=== PATIENT | female | born 1960 | race Two or more races ===

== ENCOUNTER 2025-03-31 17:34 | Emergency (ER) | payer MEDICARE, MEDICAID, SELFPAY ==
[2025-03-31 17:35] VITALS: BMI 25.5
[2025-03-31 17:52] VITALS: BP 130/73; PULSE 72; RESP 18; TEMP 37; O2SAT 97
--- NOTE | 2025-03-31 18:06 | XR_ITS ---
Examination: Humerus 2 views right Technique: Humerus, AP lateral 2 views Date and time of exam: March 31, 2025, 1807 hours INDICATION: Patient fell today with injury of the arm, arm pain. FINDINGS: No acute fracture No shoulder dislocation IMPRESSION: No acute fracture Mild shoulder calcific tendinitis
--- NOTE | 2025-03-31 18:06 | XR_ITS ---
Examination: Forearm, right, 2 views. Technique: Forearm, AP, lateral 2 views Date and time of exam: March 31, 2025, 1807 hours INDICATIONS: Patient fell today with injury to the forearm, forearm pain. FINDINGS: Nonstandard views The distal ulna is dorsally positioned on the lateral view No definite acute fracture IMPRESSION: Limited study, nonstandard views The distal ulna is dorsally positioned on the lateral view, recommend follow-up true lateral view of the wrist
--- NOTE | 2025-03-31 18:06 | XR_ITS ---
Examination: Hand, right 3 views Technique: Hand AP, oblique, lateral 3 views Date and time of exam: March 31, 2025, 1820 hours INDICATIONS: Patient fell today with injury to the hand, hand pain. FINDINGS: No acute fracture On the lateral view the distal ulna is dorsally positioned No foreign body IMPRESSION: Recommend follow-up true lateral view of the wrist to exclude dorsal dislocation of the distal ulna
--- NOTE | 2025-03-31 18:06 | XR_ITS ---
Examination: Shoulder, right, 3 views Technique: Shoulder AP internal rotation, AP external rotation, Y view shoulder, 3 views Exam date and time : March 31, 2025, e.g. 07 hours INDICATIONS: Patient fell today with injury of the shoulder, shoulder pain. FINDINGS: No shoulder fracture or dislocation Mild calcific tendinitis IMPRESSION: No shoulder fracture or dislocation
--- NOTE | 2025-03-31 18:08 | PD.EDRME ---
Rapid Medical Screening Exam RME Arrival date/time: 03/31/25 17:34 64-year-old female presents to the Emergency Department of complaint of right arm pain after ground-level fall today patient reports that she tripped. Patient ports no head or neck injury Chief Complaint: Extremity Injury, Upper Time Seen by Provider: 03/31/25 18:08 Vital signs: Vital Signs Temperature 98.6 F 03/31/25 17:52 Pulse Rate 72 03/31/25 17:52 Respiratory Rate 18 03/31/25 17:52 Blood Pressure 130/73 03/31/25 17:52 Pulse Oximetry (%) 97 03/31/25 17:52 Oxygen Delivery Method Room Air 03/31/25 17:52 Vital signs reviewed by provider: Yes Exam: On exam well-appearing does not appear ill or toxic but patient does have pain in the right arm suspect fracture Clinical Impression: Imaging obtained as well as pain medication given
[2025-03-31 19:29] VITALS: TEMP 37.1
[2025-03-31] MEDS: KETOROLAC INJ 30 MG/ML VIAL IM (19:29)
[2025-03-31] MEDS: HYDROcodone/APAP 5/325 TABLET 1 TAB PO (19:29)
[2025-03-31 20:52] VITALS: TEMP 37.7
[2025-03-31 21:13] VITALS: BP 138/74; PULSE 58; RESP 18; TEMP 36.6; O2SAT 98
--- NOTE | 2025-03-31 21:22 | PD.EDADULT ---
ED General RME/HPI General Chief complaint: Extremity Injury, Upper Stated complaint: shoulder pain Time Seen by Provider: 03/31/25 18:08 Arrival date/time: 03/31/25 17:34 Right shoulder, elbow and wrist pain HPI status post fall 330 this afternoon denies LOC or LOC tripped and fell. Does not on any blood thinners denies numbness or tingling in the hand. Is complaining of pain and mild swelling to the dorsum of the right hand. Decreased range of motion secondary to pain. Pain is localized as a 3 4 on a 10 scale 7-8 with flexion extension of the elbow wrist or shoulder. RME / HPI RME / HPI narrative: 03/31/25 17:34 64-year-old female presents to the Emergency Department of complaint of right arm pain after ground-level fall today patient reports that she tripped. Patient ports no head or neck injury Exam: On exam well-appearing does not appear ill or toxic but patient does have pain in the right arm suspect fracture Impression: Imaging obtained as well as pain medication given Related Data Home Medications ?Medication ?Instructions ?Recorded ?Confirmed atorvastatin 10 mg tablet 10 mg PO QDAY 07/05/21 07/05/21 cyclobenzaprine 10 mg tablet 10 mg PO HS 07/05/21 07/05/21 naproxen 500 mg tablet 500 mg PO BID PRN Pain 07/05/21 07/05/21 Allergies Allergy/AdvReac Type Severity Reaction Status Date / Time No Known Allergies Allergy Verified 07/05/21 07:52 Review of Systems Review of Systems Narrative Review of Systems: GEN: No fever, no chills, no weight loss EYES: No discharge, no visual changes, no pain HEENT: No ear pain, no congestion, no sore throat PULM: No shortness of breath, no cough, no congestion CV: No chest pain, no dyspnea on exertion, no palpitations GI: No nausea, no vomiting, no diarrhea, no pain, no constipation : No frequency, no urgency, no dysuria MUSC/SKEL: + joint pain, no back pain SKIN: No rash PSYCH: No hallucinations, no depression HEME/LYMPH: No easy bleeding or bruising tendencies NEURO: No weakness, no headache Past Medical History Past Medical History NEUROLOGIC: Negative Neurological Disorders or Seizures CARDIAC: Positive Cardiac Disorders and Hypercholesterolemia (TAKES MED); Negative Congestive Heart Failure, Edema, Cellulitis or Varicose Veins RESPIRATORY: Negative Chronic Obstructive Pulmonary Disease (COPD), Tuberculosis, Pulmonary Embolism or Sleep Apnea GASTROINTESTINAL: Negative Gastrointestinal Disorders or Hepatitis GENITOURINARY: Negative Genitourinary Disorders or Renal Disease REPRODUCTIVE: Positive Previous Pregnancies (X3) MUSCULOSKELETAL: Positive Musculoskeletal Disorders and Arthritis ENDOCRINE: Negative Endocrine Disorders, Diabetes Mellitus Type 1 or Diabetes Mellitus Type 2 HEMATOLOGIC: Negative Blood Disorders OTHER HISTORY: Positive Chicken Pox and Measles; Negative Hospitalization, Autoimmune Disease, Shingles, Falls, Blood Transfusions, Blood Transfusion Reaction, Anesthesia Reactions, Chemotherapy, Radiation Therapy, MRSA, Mumps or Cancer Family History FAMILY HISTORY: Positive Family Surgery (BROTHER); Negative Family Psychiatric Problems, Family Respiratory Disorders, Family Cardiac Disorders, Family Gastrointestinal Problems, Family Cancer or Family Anesthesia Reaction Surgical History SURGICAL: Negative Pacemaker Social History SMOKING STATUS: Never smoker ED Exam Narrative Physical exam: [General: In mild discomfort but not in any acute distress Head normocephalic HEENT: Within acceptable limits Neck is supple nontender Chest equal chest rise nontender to palpation Respiratory: Clear to auscultation no wheezes crackles or rubs CV: Rate rhythm is regular no murmurs rubs or clicks Abdomen is distended secondary to body habitus soft nontender no masses positive bowel sounds all 4 quadrants Back: No CVA tenderness no spinous process tenderness from cervical spine thoracic and lumbar spine Skin: Intact no petechiae rash induration ulceration or crepitus Extremities: Tenderness with range of motion to the right shoulder elbow and wrist, in the shoulder and elbow no pops or clicks pain with passive and active range of motion strength is 4/5. Wrist full range of motion with pain strength at 3/5. Subtle dorsal ecchymosis to the lateral aspect of the right hand. Digits cap refill less than 2 seconds neurosensory intact moving all digits. Neurosensory intact. Moving all other extremities against resistance cap refill less than 2 seconds neurosensory intact Neuro: Awake alert oriented x3 Glascow coma 15 no focal deficits] Course Course Course Narrative: Patient requesting naproxen for pain medication. Will give her a sling she is to follow-up with her primary care doctor if there is worsening of symptoms she can return the emergency room for reevaluation. Quality Measures none Orders Category Date Time Status XR forearm RT 2V Stat Exams 03/31/25 18:06 Completed XR hand comp RT min 3V Stat Exams 03/31/25 18:06 Completed XR humerus RT min 2V Stat Exams 03/31/25 18:06 Completed XR shoulder RT min 2V Stat Exams 03/31/25 18:06 Completed HYDROcodone*/APAP 5/325 [[place] 5/325] Med 03/31/25 18:06 Discontinued 1 tab PO X1 ONE Ketorolac Inj [Toradol Inj] Med 03/31/25 18:06 Discontinued 30 mg IM X1 ONE Vital Signs Vital signs: Vital Signs Temperature 98.6 F 03/31/25 17:52 Pulse Rate 72 03/31/25 17:52 Respiratory Rate 18 03/31/25 17:52 Blood Pressure 130/73 03/31/25 17:52 Pulse Oximetry (%) 97 03/31/25 17:52 Oxygen Delivery Method Room Air 03/31/25 17:52 Discharge Plan Plan Patient Disposition: HOME (Self Care) Patient condition on transfer: Stable Prescriptions/Referrals Prescriptions/Med Rec: No Action cyclobenzaprine 10 mg Tablet 10 mg PO HS atorvastatin 10 mg Tablet 10 mg PO QDAY naproxen 500 mg Tablet 500 mg PO BID PRN (Reason: Pain) Referrals: No Primary/Family,Physician [Primary Care Provider] - In 1 week Israel Gramajo MD [Physician, Family Practice] - In 1 week Problem List Clinical Impression: Contusion of right shoulder, Contusion of elbow, right, Contusion of right wrist, Contusion of hand, right Patient/Caregiver Discharge Instructions Other Activity Instructions:: Use the sling as needed advance to full use as tolerated be careful at nighttime when you get up, I am worried that you will lose your balance and cannot use that arm to regain your balance. Education Materials: ED Contusion, Upper Extremity Additional Instructions: Take the naproxen as needed always with food. Print Language: Ukrainian Stand Alone Forms: Leida Award Info., Patient Portal Info Letter PA/STOVE MECHANIC Supervising Physician PA/STOVE MECHANIC Supervising Physician: Wai Pinto ENP [facility] Clinical Information Provided by: patient Medical Records reviewed [facility] Meds/Rx considered, not ordered None Labs/Rad/Tests considered, not ordered None Chronic Illness/Social Conditions which may negatively complicate care or outcome(s)-explain: None or not applicable EKG EKG not done Labs Labs: none Imaging Imaging interpretation: interpreted by me Imaging Interpretation(s): Shoulder elbow wrist x-rays are negative for any acute finding. Medication Administration(s) Medication Administration History Discontinued Medications Hydrocodone Bitart/Acetaminophen (Hydrocodone/Apap 5/325 Tablet) 1 tab PO X1 ONE Stop: 03/31/25 18:07 Last Admin: 03/31/25 19:29 Dose: 1 tab Documented By: CAMILO Ketorolac Tromethamine (Ketorolac Inj 30 Mg/Ml Vial) 30 mg IM X1 ONE Stop: 03/31/25 18:07 Last Admin: 03/31/25 19:29 Dose: 30 mg Documented By: CAMILO Diagnosis Differential Diagnosis ED Complaint MDM: Wrist fracture elbow fracture shoulder fracture
== END 2025-03-31 21:33 | disposition home or self-care (01) ==
PROVIDERS: Emergency Provider Emergency Medicine
DX: S60.221A Contusion of right hand, initial encounter (principal); S50.01XA Contusion of right elbow, initial encounter; S40.011A Contusion of right shoulder, initial encounter; S60.211A Contusion of right wrist, initial encounter; W01.0XXA Fall on same level from slipping, tripping and stumbling without subsequent striking against object, initial encounter
CPT/HCPCS: 73030; 73060; 73090; 73130; 96372; 99283; J1885; A9270